=== PATIENT | male | born 1940 | race Caucasian/White ===

== ENCOUNTER 2018-05-30 08:18 | Day surgery (SDC) | payer MEDICARE, BC ==
[~2018-05-30] VITALS: Ht 165.1 cm; Wt 88.5 kg
[~2018-05-30 08:18] MED LIST: ASPI81CH PO; ASPI81EC; ASPI81EC PO; ATOR10; CEPH500 PO; CHOL10002 PO; CIPR500 PO; DOXA4 PO; FINA5 PO; FISH1000 PO; HYDACE5 PO; LEVFLO500 PO; LIVALO2 MG PO; LOSA50 PO; LOVA40 PO; MELA3 PO; METO25ER PO; METR500 PO; NITR.4SL SL; OXYACE5T PO; OXYC5 PO; PROM25 PO; RAPAFLO; RXOXYACE PO; TAMS.4ER PO; TEMA15 PO; TOCO400 PO; [UNRECOGNIZED DRUG - REMARK]
[2018-05-30] MEDS ORDERED: LOVA40 PO (08:53)
[2018-05-30] MEDS ORDERED: GABA100 PO (08:55)
== END 2018-05-30 11:53 | disposition home or self-care (01) ==
LOC: ORSCSDS 08:18
PROVIDERS: Orthopaedic Surgery
PROC: 01N50ZZ Release Median Nerve, Open Approach (ICD-10-PCS; principal; 2018-05-30 09:45)
DX: G56.02 Carpal tunnel syndrome, left upper limb (principal); Z87.891 Personal history of nicotine dependence; I10 Essential (primary) hypertension; E03.9 Hypothyroidism, unspecified; G47.33 Obstructive sleep apnea (adult) (pediatric); E78.5 Hyperlipidemia, unspecified; E66.9 Obesity, unspecified; Z68.32 Body mass index [BMI] 32.0-32.9, adult; Z79.82 Long term (current) use of aspirin; Z79.899 Other long term (current) drug therapy
CPT/HCPCS: J0171; J2250; J3010; J7120

== ENCOUNTER 2019-05-29 11:28 | Day surgery (SDC) | payer MEDICARE, BC ==
[~2019-05-29] VITALS: Ht 165.1 cm; Wt 87.0 kg
[~2019-05-29 11:28] MED LIST changes: +ATOR40TA PO; +FURO40 PO; +GABA100 PO; +GABA300 PO; +LOSARTAN POTAS100 MG PO; +Lasix40 MG PO; +Metoprolol Succ25 MG PO; +Nitrostat0.4 MG SL; +TEMA30 PO
== END 2019-05-29 14:45 | disposition home or self-care (01) ==
LOC: ORSCSDS 11:28
PROVIDERS: Internal Medicine Gastroenterology
PROC: 0DBK8ZX Excision of Ascending Colon, Via Natural or Artificial Opening Endoscopic, Diagnostic (ICD-10-PCS; principal; 2019-05-29 12:45)
PROC: 0DBL8ZX Excision of Transverse Colon, Via Natural or Artificial Opening Endoscopic, Diagnostic (ICD-10-PCS; principal; 2019-05-29 12:45)
PROC: 0DBN8ZX Excision of Sigmoid Colon, Via Natural or Artificial Opening Endoscopic, Diagnostic (ICD-10-PCS; principal; 2019-05-29 12:45)
DX: Z12.11 Encounter for screening for malignant neoplasm of colon (principal); Z86.010 Personal history of colon polyps; D12.3 Benign neoplasm of transverse colon; D12.2 Benign neoplasm of ascending colon; D12.5 Benign neoplasm of sigmoid colon; K57.30 Diverticulosis of large intestine without perforation or abscess without bleeding; K64.8 Other hemorrhoids; I10 Essential (primary) hypertension; E78.5 Hyperlipidemia, unspecified; Z87.891 Personal history of nicotine dependence; Z79.899 Other long term (current) drug therapy; Z79.82 Long term (current) use of aspirin; G47.33 Obstructive sleep apnea (adult) (pediatric)
CPT/HCPCS: 88305; J2704; J7120

== ENCOUNTER 2024-02-10 10:45 | Emergency (ER) | payer MEDICARE, BC ==
[~2024-02-10] VITALS: Ht 167.6 cm; Wt 81.7 kg
[2024-02-10 11:29] VITALS: BP 159/80
[2024-02-10] MEDS ORDERED: FentaNYL Citrate 50 MCG/ML 2 ML Injection IM ONE (12:20)
[2024-02-10] MEDS ORDERED: Robaxin750 MG PO (14:33)
== END 2024-02-10 14:47 | disposition home or self-care (01) ==
LOC: ER 10:45
DX: S76.312A Strain of muscle, fascia and tendon of the posterior muscle group at thigh level, left thigh, initial encounter (principal); E78.5 Hyperlipidemia, unspecified; G47.30 Sleep apnea, unspecified; H26.9 Unspecified cataract; Z88.0 Allergy status to penicillin; Z79.899 Other long term (current) drug therapy; Z79.82 Long term (current) use of aspirin; X50.0XXA Overexertion from strenuous movement or load, initial encounter; Z87.891 Personal history of nicotine dependence
CPT/HCPCS: 76882; 96372; 99283-25; J3010

== ENCOUNTER → 2024-02-12 | Outpatient (CLI) | payer MEDICARE ==
[~2024-02-12] MED LIST changes: +Robaxin750 MG PO
== END | disposition home or self-care (01) ==
LOC: LAB EV 08:43 → LAB SHORT 08:43
DX: D48.5 Neoplasm of uncertain behavior of skin (principal)
CPT/HCPCS: 88305